=== PATIENT | male | born 1980 | race Caucasian/White ===

== ENCOUNTER 2018-06-13 13:01 | Emergency (ER) | payer OTHER ==
[~2018-06-13] VITALS: Ht 182.9 cm; Wt 92.5 kg
[2018-06-13 13:13] VITALS: BP 120/67
--- NOTE | 2018-06-13 13:20 | NUR ---
PT AMBULATED TO ER BED 06
--- NOTE | 2018-06-13 13:26 | NUR ---
37 YO M BIB SELF WITH C/O BL FOOT PAIN X 5 DAYS. PAIN RADIATES FROM FOOT TO CALF AND BACK. BURNING 5/10 PAIN SCALE. 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 PT STATES THAT THE BACK PAIN IS NORMAL FOR HIM, BUT THE FEET PAIN IS NEW. DENIES ANY HX (NO DM). -EDEMA/ECCHYMOSIS/DEFORMITY. AAOX4, GCS 15, CMS INTACT. RR EVEN AND UNLABORED, LUNGS BL CLEAR. ABD SOFT, NON-TENDER. ER MD NOTIFIED OF PT STATUS. PT NEEDS MET. SAFETY PRECAUTIONS IN PLACE. WILL CONTINUE TO MONITOR.
[2018-06-13 14:07] VITALS: BP 120/67
--- NOTE | 2018-06-13 14:08 | NUR ---
Patient discharged with v/s stable. Written and verbal after care instructions given and explained. Patient verbalized understanding. Ambulatory with steady gait. All questions addressed prior to discharge. Advised to follow up with PMD.
== END 2018-06-13 14:08 | disposition home or self-care (01) ==
LOC: MED 13:01
DX: M25.572 Pain in left ankle and joints of left foot (principal); M25.571 Pain in right ankle and joints of right foot; M62.830 Muscle spasm of back
CPT/HCPCS: 99282

== ENCOUNTER 2018-10-19 10:39 | Emergency (ER) | payer OTHER ==
[~2018-10-19] VITALS: Ht 182.9 cm; Wt 93.6 kg
[2018-10-19 10:42] VITALS: BP 146/107
--- NOTE | 2018-10-19 10:47 | NUR ---
BIB SELF. AAO X4 C/O BL FOOT PAIN. CONSTANT THROBBING AND ACHY PAIN THAT RADIATES FROM BALLS OF FEET UP TO BOTH THIGHS AT 5/10. PAIN DECREASES WITH STRETCHING. PT DENIES TRAUMA. STEADY GAIT. LASHANDA EQUAL STRENGTH TO LOWER EXTREMITIES. +CMS TO LASHANDA FEET. ER TO EVAL PT
--- NOTE | 2018-10-19 10:47 | NUR ---
PATIENT AMBULATED TO BED 12
--- NOTE | 2018-10-19 11:01 | NUR ---
DR QUIJANO AT BEDSIDE FOR PT EVAL
[2018-10-19] MEDS ORDERED: KETOROLAC 60 MG/2 ML VIAL IM ONE (11:10)
--- NOTE | 2018-10-19 11:19 | NUR ---
PT TAKEN TO RADIOLOGY VIA WHEEL CHAIR
[2018-10-19 12:10] VITALS: BP 141/96
--- NOTE | 2018-10-19 12:10 | NUR ---
Patient discharged with v/s stable. Written and verbal after care instructions given and explained. Patient alert, oriented and verbalized understanding of instructions. Ambulatory with steady gait. All questions addressed prior to discharge. ID band removed. Patient advised to follow up with PMD. Rx of Robaxin, Motrin given. Patient educated on indication of medication including possible reaction and side effects. Opportunity to ask questions provided and answered.
== END 2018-10-19 12:10 | disposition home or self-care (01) ==
LOC: MED 10:39
DX: M54.41 Lumbago with sciatica, right side (principal); M54.42 Lumbago with sciatica, left side; R03.0 Elevated blood-pressure reading, without diagnosis of hypertension
CPT/HCPCS: 72100; 99283; J1885